=== PATIENT | male | born 1985 | race Caucasian/White ===

== ENCOUNTER 2017-12-22 08:37 | Outpatient (CLI) | payer BC ==
--- NOTE | 2017-12-22 20:17 | ULT ---
ABDOMINAL ULTRASOUND 12/22/17 Ultrasonography of the abdomen was performed for evaluation of abdominal pain, predominantly right si ded. The liver was upper normal in size at 16.0 cm in oblique sagittal length. It appeared normal internal ly, however. The spleen was upper normal measuring 13.6 cm in length. The pancreas was mostly obscure d by gas. The aorta and inferior vena cava were unremarkable. The gallbladder contained no stones, wa ll thickening, or other acute changes. The common bile duct was a normal 4 mm in width. The right kidney was 11.5 cm long and the left was 12.9 cm. Both appear normal. IMPRESSION: Borderline hepatic and splenic sizes. Exam otherwise unremarkable. POS: HOME
== END 2017-12-22 08:38 | disposition home or self-care (01) ==
LOC: BURULT 08:37
PROVIDERS: ATTEND Family Medicine
DX: R10.84 Generalized abdominal pain (principal)
CPT/HCPCS: 76700

== ENCOUNTER 2022-03-20 09:00 | Outpatient (CLI) | payer BC | END 2022-03-20 09:01 | disposition home or self-care (01) | LOC: BURCT 09:00 | PROVIDERS: ATTEND Family Medicine | DX: R10.11 Right upper quadrant pain (principal) | CPT/HCPCS: 74177 ==